=== PATIENT | female | born 1985 | race Caucasian/White ===

== ENCOUNTER 2016-10-02 21:40 | Emergency (ER) | payer SELFPAY ==
[2016-10-02] MEDS ORDERED: IBUPROFEN 600 MG TABLET PO ONE (23:30)
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
== END 2016-10-03 01:16 | disposition home or self-care (01) ==
LOC: ER 21:40
DX: S20.219A Contusion of unspecified front wall of thorax, initial encounter (principal); V49.88XA Car occupant (driver) (passenger) injured in other specified transport accidents, initial encounter; Y92.410 Unspecified street and highway as the place of occurrence of the external cause
CPT/HCPCS: 71020; 71260; 99283; 99284

== ENCOUNTER 2018-01-24 22:48 | Emergency (ER) | payer MEDICAID ==
[2018-01-24 23:27] LABS: URINE APPEARANCE CLEAR; URINE BILIRUBIN NEGATIVE (NEGATIVE); URINE BLOOD TRACE-I (NEGATIVE); URINE COLOR YELLOW; URINE GLUCOSE (UA) NEGATIVE (NEGATIVE); URINE KETONE NEGATIVE (NEGATIVE); URINE LEUKOCYTE ESTERASE SMALL (NEGATIVE); URINE NITRITE NEGATIVE (NEGATIVE); URINE PROTEIN NEGATIVE (NEGATIVE); URINE UROBILINOGEN 0.2 E.U./dL (0.20 - 1.00)
--- NOTE | 2018-01-24 23:30 | Emergency Department Record ---
History of Present Illness - General Chief complaint: Female Urogenital Problem Stated complaint: UTI ? Time Seen by Provider: 01/24/18 23:17 Source: Patient Mode of Arrival: Ambulatory Limitations: No limitations - History of Present Illness Initial comments: pt has had pain similar to what she has had in the past with kidney stones and now she has dysuria and urgency and feels as though she may have an infection Complaint: Other Onset/Timin -: Days(s) Severity scale (1-10): 5 Quality: Burning, Cramping Consistency: Intermittent Improves with: None Worsens with: Urination LMP Date: 12/26/17 Gestational Age (wks) based on LMP: 4 Associated Symptoms: Abdominal pain - Related Data Previous Rx's Medication Instructions Recorded Nitrofurantoin Monohyd/M-Cryst 100 mg PO BID #9 capsule 01/25/18 [Macrobid 100 mg Capsule] Phenazopyridine HCl [Pyridium] 200 mg PO TID #5 tab 01/25/18 Allergies Allergy/AdvReac Type Severity Reaction Status Date / Time Sulfa (Sulfonamide Allergy Unknown HYPERSENSIT Verified 01/24/18 22:56 Antibiotics) IVITY Latex, Natural Rubber Allergy SKIN Verified 01/24/18 22:56 IRRITATION Travel Screening - Travel/Exposure Within Last 30 Days Have you traveled within the last 30 days?: No - Travel Symptoms Symptom Screening: None Review of Systems Reviewed: No additional complaints except as noted below Constitutional: Reports: As per HPI. Denies: Chills, Fever, Malaise, Night sweats, Weakness, Weight change Eyes: Reports: As per HPI. Denies: Eye discharge, Eye pain, Photophobia, Vision change ENT: Reports: As per HPI. Denies: Congestion, Dental pain, Ear pain, Epistaxis , Hearing loss, Throat pain Respiratory: Reports: As per HPI. Denies: Cough, Dyspnea, Hemoptysis, Stridor, Wheezes Cardiovascular: Reports: As per HPI. Denies: Arrhythmia, Chest pain, Dyspnea on exertion, Edema, Murmurs, Orthopnea, Palpitations, Paroxysmal nocturnal dyspnea, Rheumatic Fever, Syncope Endocrine: Reports: As per HPI. Denies: Fatigue, Heat or cold intolerance, Polydipsia, Polyuria Gastrointestinal: Reports: As per HPI, Abdominal pain. Denies: Constipation, Diarrhea, Hematemesis, Hematochezia, Melena, Nausea, Vomiting Genitourinary: Reports: As per HPI, Dysuria, Frequency, Urgency. Denies: Abnormal menses, Discharge, Dyspareunia, Hematuria, Incontinence, Retention Musculoskeletal: Reports: As per HPI. Denies: Arthralgia, Back pain, Gout, Joint swelling, Myalgia, Neck pain Skin: Reports: As per HPI. Denies: Bruising, Change in color, Change in hair/ nails, Lesions, Pruritus, Rash Neurological: Reports: As per HPI. Denies: Abnormal gait, Confusion, Headache, Numbness, Paresthesias, Seizure, Tingling, Tremors, Vertigo, Weakness Psychiatric: Reports: As per HPI. Denies: Anxiety, Auditory hallucinations, Depression, Homicidal thoughts, Suicidal thoughts, Visual hallucinations Hematological/Lymphatic: Reports: As per HPI. Denies: Anemia, Blood Clots, Easy bleeding, Easy bruising, Swollen glands Past Medical History - SOCIAL HISTORY Smoking Status: Light tobacco smoker (<10/day) - RESPIRATORY Hx Respiratory Disorders: No - CARDIOVASCULAR Hx Cardio Disorders: Yes Hx Irregular Heartbeat: Yes - NEURO Hx Neuro Disorders: No - GI Hx GI Disorders: Yes Hx Abdominal Pain: Yes Hx Reflux: Yes - Hx Genitourinary Disorders: Yes Hx Kidney Stones: Yes - ENDOCRINE Hx Endocrine Disorders: No Hx Diabetes: No Hx Thyroid Disease: No - MUSCULOSKELETAL Hx Musculoskeletal Disorders: No - PSYCH Hx Psych Problems: Yes Hx Anxiety: Yes Comment:: OCD, ALISON, Bipolar 1 - HEMATOLOGY/ONCOLOGY Hx Hematology/Oncology Disorders: Yes Hx Anemia: Yes Family Medical History Any Significant Family History?: Yes Hx Kidney Disease: Father, Grandparents Physical Exam - General General Appearance: Alert, Oriented x3, Cooperative, Mild distress - Head Head exam: Normal inspection - Eye Eye exam: Normal appearance, PERRL, EOMI Pupils: Normal accommodation - ENT ENT exam: Normal exam, Mucous membranes moist, Normal external ear exam, Normal orophraynx Ear exam: Normal external inspection. negative: External canal tenderness Nasal Exam: Normal inspection. negative: Discharge, Sinus tenderness Mouth exam: Normal external inspection, Tongue normal Teeth exam: Normal inspection. negative: Dental caries Throat exam: Normal inspection. negative: Tonsillar erythema, Tonsillar exudate - Neck Neck exam: Normal inspection, Full ROM. negative: Tenderness - Respiratory Respiratory exam: Normal lung sounds bilaterally. negative: Respiratory distress - Cardiovascular Cardiovascular Exam: Regular rate, Normal rhythm, Normal heart sounds - GI/Abdominal GI/Abdominal exam: Soft, Normal bowel sounds, Tenderness (suprapubic) - Rectal Rectal exam: Deferred - exam: Deferred - Extremities Extremities exam: Normal inspection, Full ROM, Normal capillary refill. negative: Tenderness - Back Back exam: Reports: CVA tenderness (R), CVA tenderness (L), Full ROM. Denies: Muscle spasm, Rash noted, Tenderness - Neurological Neurological exam: Alert, CN II-XII intact, Normal gait, Oriented X3 - Psychiatric Psychiatric exam: Normal affect, Normal mood - Skin Skin exam: Dry, Intact, Normal color, Warm Course Vital Signs 01/24/18 22:54 Temperature 97.8 F Pulse Rate [ 77 Pulse Ox Probe] Respiratory 20 Rate Blood Pressure 125/86 [Left Arm] Pulse Ox 98 - Reevaluation(s) Reevaluation #1: 01/25/18 01:26 ct is neg Medical Decision Making - Lab Data Result diagrams: 01/24/18 23:55 01/24/18 23:55 Disposition Disposition: Discharge Clinical Impression: UTI (urinary tract infection) Qualifiers: Urinary tract infection type: acute cystitis Hematuria presence: without hematuria Qualified Code(s): N30.00 - Acute cystitis without hematuria Disposition: Home, Self-Care Condition: (1) Good Instructions: Urinary Tract Infection in Women (ED) Additional Instructions: follow up with family doctor. return sooner if worse Prescriptions: Nitrofurantoin Monohyd/M-Cryst [Macrobid 100 mg Capsule] 100 mg PO BID #9 capsule Phenazopyridine HCl [Pyridium] 200 mg PO TID #5 tab Forms: Patient Portal Access Quality - Quality Measures Quality Measures: N/A - Blood Pressure Screening Does Patient Have Any of the Following: No Blood Pressure Classification: Pre-Hypertensive BP Reading Systolic Measurement: 120 Diastolic Measurement: 71 Screening for High Blood Pressure: < Pre-Hypertensive BP, F/U Documented > [ G8950] Pre-Hypertensive Follow-up Interventions: Follow-up with rescreen every year.
[2018-01-24 23:33] LABS: HCG,QUALITATIVE URINE NEGATIVE (NEGATIVE); URINE AMORPHOUS SEDIMENT 1+; URINE BACTERIA FEW; URINE EPITHELIAL CELLS 0 - 2 (FEW); URINE RBC 0 - 2 (NONE SEEN)
[2018-01-25 00:11] LABS: BASO % 0.7 % (0-6); EOS % 2.6 % (0-6); GRAN % 48.9 % (47-80); HEMATOCRIT 36.8 % (35.0-47.0); HEMOGLOBIN 12.2 gm/dl (11.6-16.0); LYMPH % 36.5 % (16-45); MEAN CELL VOLUME 93.6 fl (81-97); MEAN CORPUSCULAR HGB CONC 33.2 g/dl (32-36); MEAN PLATELET VOLUME 9.9 fl (7.4-10.4); MONO % 11.3 % (0-9); PLATELET COUNT 307 K/uL (130-400); RED BLOOD COUNT 3.93 M/uL (3.80-5.40); RED CELL DISTRIBUTION WIDTH 12.5 % (11.5-14.5); WHITE BLOOD COUNT W/O DIFF 8.5 K/uL (4.2-12.2)
[2018-01-25 00:47] LABS: BLOOD UREA NITROGEN 14 mg/dL (6-20); CREATININE 0.9 mg/dL (0.5-0.9); EST GLOMERULAR FILTRATION RATE > 60 mL/min
[2018-01-25 00:49] LABS: GLUCOSE,RANDOM 84 mg/dL (74-109)
[2018-01-25] MEDS ORDERED: NITROFURANTOIN MONO 100 MG CAPSULE PO ONE (01:23)
[2018-01-25] MEDS ORDERED: PHENAZOPYRIDINE HCL 95 MG TABLET PO ONE (01:24)
--- NOTE | 2018-01-26 18:56 | CT SCAN REPORT ---
EXAM: CT SCAN ABDOMEN/PELVIS WO CONTRAST HISTORY: LOWER ABDOMINAL PAIN WITH WORSENING DURING URINATION. TECHNIQUE: Routine helical CT examination of the abdomen and pelvis is performed without oral or intravenous contrast administration. Lack of oral and IV contrast utilization limits evaluation of the bowel and solid viscera, respectively. COMPARISON: None. FINDINGS: Minor linear scarring vs. atelectasis is present in each lung base anteriorly. The lung bases are otherwise clear. No pleural or pericardial effusion. The heart is not enlarged. The liver, spleen, pancreas, and adrenal glands are normal in appearance. The gallbladder is surgically absent and no biliary ductal dilatation is seen. The kidneys are normal in size, position, and are smoothly marginated. There are several small nonobstructing calculi in each kidney with the largest measuring up to 3 mm. No renal mass. The renal collecting systems are normal in caliber. No definite ureteral calculus. Multiple small calcifications within the inferior pelvis are likely vascular in origin. No pelvic mass, lymphadenopathy, or free pelvic fluid. No intrinsic urinary bladder abnormality. No gross bowel dilatation nor bowel wall thickening. The appendix is visualized and normal in appearance. There is a small umbilical/periumbilical hernia appearing uncomplicated. The abdominal wall is otherwise unremarkable. No lytic or blastic bone lesion. IMPRESSION: 1. BILATERAL NEPHROLITHIASIS. NO EVIDENCE OF URETERAL CALCULUS OR OBSTRUCTIVE UROPATHY. 2. NO CONVINCING CT EVIDENCE OF AN ACUTE INTRAABDOMINAL NOR INTRAPELVIC PROCESS. JOB NUMBER: [id number] [facility]
== END 2018-01-25 01:40 | disposition home or self-care (01) ==
LOC: ER 22:48
DX: N30.00 Acute cystitis without hematuria (principal); R10.30 Lower abdominal pain, unspecified; F17.210 Nicotine dependence, cigarettes, uncomplicated; Z87.442 Personal history of urinary calculi
CPT/HCPCS: 74176; 80048; 81001; 81025; 85025; 99283; 99284

== ENCOUNTER 2018-02-05 20:46 | Emergency (ER) | payer MEDICAID ==
--- NOTE | 2018-02-05 21:03 | Emergency Department Record ---
History of Present Illness - General Chief Complaint: Abdominal Pain Stated Complaint: ABD PAIN Time Seen by Provider: 02/05/18 20:55 Source: Patient Mode of Arrival: Ambulatory Limitations: No limitations - History of Present Illness Initial Comments: The patient is here due to upper AP for 2 days. The pain is in the epigastric area and is sharp and stabbing. She denies any nausea, vomiting, diarrhea, fever , dysuria, or any vaginal symptoms. The pain is mainly located over the Xiphoid process. The patient has had her GB removed in the past and was just in the ER here due to flank pain and had a neg abdominal CT for any acute process. MD Complaint: Abdominal pain Onset/Timin -: Days(s) Location: Epigastric Radiation: Epigastric Migration to: No migration Severity: Moderate Severity scale (1-10): 5 Quality: Stabbing Improves With: Nothing Worsens With: Other Associated Symptoms: Other - Related Data LMP Date: 01/26/18 LMP (females 10-50): Last week Patient : No Previous Rx's Medication Instructions Recorded Phenazopyridine HCl [Pyridium] 200 mg PO TID #5 tab 01/25/18 Naproxen [Naprosyn] 500 mg PO BID #14 tablet. 02/05/18 Allergies Allergy/AdvReac Type Severity Reaction Status Date / Time Sulfa (Sulfonamide Allergy Unknown HYPERSENSIT Verified 01/24/18 22:56 Antibiotics) IVITY Latex, Natural Rubber Allergy SKIN Verified 01/24/18 22:56 IRRITATION Travel Screening - Travel/Exposure Within Last 30 Days Have you traveled within the last 30 days?: No - Travel Symptoms Symptom Screening: None Review of Systems Constitutional: Denies: Chills, Fever Eyes: Denies: Eye discharge ENT: Denies: Congestion Respiratory: Denies: Cough, Dyspnea Past Medical History - SOCIAL HISTORY Smoking Status: Light tobacco smoker (<10/day) Alcohol Use: None Drug Use: Rare Drug Use Detail:: Marijuana - RESPIRATORY Hx Respiratory Disorders: No - CARDIOVASCULAR Hx Cardio Disorders: Yes Hx Irregular Heartbeat: Yes - NEURO Hx Neuro Disorders: No - GI Hx GI Disorders: Yes Hx Abdominal Pain: Yes Hx Reflux: Yes - Hx Genitourinary Disorders: Yes Hx Kidney Stones: Yes - ENDOCRINE Hx Endocrine Disorders: No Hx Diabetes: No Hx Thyroid Disease: No - MUSCULOSKELETAL Hx Musculoskeletal Disorders: No - PSYCH Hx Psych Problems: Yes Hx Anxiety: Yes Comment:: OCD, ALISON, Bipolar 1 - HEMATOLOGY/ONCOLOGY Hx Hematology/Oncology Disorders: Yes Hx Anemia: Yes Family Medical History Any Significant Family History?: Yes Hx Kidney Disease: Father, Grandparents *Kidney Comment: kidney stones Physical Exam - General General Appearance: Alert, Oriented x3, Cooperative, No acute distress - Head Head exam: Atraumatic, Normocephalic, Normal inspection - Eye Eye exam: Normal appearance, PERRL, EOMI - Neck Neck exam: Normal inspection, Full ROM. negative: Tenderness - Respiratory Respiratory exam: Normal lung sounds bilaterally. negative: Respiratory distress - Cardiovascular Cardiovascular Exam: Regular rate, Normal rhythm, Normal heart sounds - GI/Abdominal GI/Abdominal exam: Soft, Other (There is tenderness over the xiphoid process which does reproduce the patient's pain. There is no swelling, bruising, or erythema appreciated and the Xiphoid process feels very normal on palpation.). negative: Distended, Rebound, Rigid, Tenderness Course Vital Signs 02/05/18 20:52 Temperature 98.3 F Pulse Rate [ 80 Pulse Ox Probe] Respiratory 18 Rate Blood Pressure 127/89 [Left Arm] Pulse Ox 97 - Reevaluation(s) Reevaluation #1: The patient is doing well at this time. She is very comfortable and is presently texting on her phone. I did explain to her that her workup has been very normal at this time. She clearly is focused on her Xiphoid process which I do believe is normal. Since she did just have an abdominal CT about 10 days ago I do not see any reason to order another. She is to take the NSAID as directed and see her family doctor for recheck later this week. 02/05/18 21:48 Medical Decision Making - Lab Data Result diagrams: 02/05/18 21:12 02/05/18 21:12 Disposition Disposition: Discharge Clinical Impression: Abdominal pain Qualifiers: Abdominal location: epigastric Qualified Code(s): R10.13 - Epigastric pain Disposition: Home, Self-Care Condition: (2) Stable Instructions: Abdominal Pain (ED) Additional Instructions: Please take the Naprosyn for pain and use an OTC laxative as needed. Please see your family doctor for recheck later this week if not better and return to the ER for any worsening pain, fever, or vomiting. Prescriptions: Naproxen [Naprosyn] 500 mg PO BID #14 tablet.dr Forms: Patient Portal Access Time of Disposition: 21:48 Quality - Quality Measures Quality Measures: N/A - Blood Pressure Screening View Details: Yes Does Patient Have Any of the Following: No Blood Pressure Classification: Pre-Hypertensive BP Reading Systolic Measurement: 122 Diastolic Measurement: 89 Screening for High Blood Pressure: < Pre-Hypertensive BP, F/U Documented > [ G8950] Pre-Hypertensive Follow-up Interventions: Referral to alternative/primary care provider.
[2018-02-05 21:21] LABS: URINE APPEARANCE CLEAR; URINE BILIRUBIN NEGATIVE (NEGATIVE); URINE BLOOD NEGATIVE (NEGATIVE); URINE COLOR YELLOW; URINE GLUCOSE (UA) NEGATIVE (NEGATIVE); URINE KETONE NEGATIVE (NEGATIVE); URINE LEUKOCYTE ESTERASE NEGATIVE (NEGATIVE); URINE NITRITE NEGATIVE (NEGATIVE); URINE PROTEIN NEGATIVE (NEGATIVE); URINE UROBILINOGEN 0.2 E.U./dL (0.20 - 1.00)
[2018-02-05 21:23] LABS: BASO % 0.6 % (0-6); EOS % 1.6 % (0-6); HCG,QUALITATIVE URINE NEGATIVE (NEGATIVE); HEMATOCRIT 37.6 % (35.0-47.0); HEMOGLOBIN 12.3 gm/dl (11.6-16.0); LYMPH % 40.6 % (16-45); MEAN CELL VOLUME 93.1 fl (81-97); MEAN CORPUSCULAR HEMOGLOBIN 30.4 pg (27-33); MEAN CORPUSCULAR HGB CONC 32.7 g/dl (32-36); MEAN PLATELET VOLUME 9.3 fl (7.4-10.4); MONO % 12.2 % (0-9); PLATELET COUNT 332 K/uL (130-400); RED BLOOD COUNT 4.04 M/uL (3.80-5.40); RED CELL DISTRIBUTION WIDTH 12.4 % (11.5-14.5); WHITE BLOOD COUNT W/O DIFF 7.9 K/uL (4.2-12.2)
[2018-02-05] MEDS: KETOROLAC 30 MG/ML VIAL IM ONE (21:31)
[2018-02-05 21:32] LABS: BLOOD UREA NITROGEN 14 mg/dL (6-20); CREATININE 0.8 mg/dL (0.5-0.9); EST GLOMERULAR FILTRATION RATE > 60 mL/min; TOTAL PROTEIN 6.6 g/dL (6.6-8.7)
[2018-02-05 21:34] LABS: GLUCOSE,RANDOM 95 mg/dL (74-109)
[2018-02-05 21:37] LABS: ALBUMIN 4.4 g/dL (4.0-5.0); ALKALINE PHOSPHATASE 63 U/L (35-104); ALT/SGPT 18 U/L (<33); AST/SGOT 20 U/L (10.0-35.0); LIPASE 26 U/L (13-60)
== END 2018-02-05 21:53 | disposition home or self-care (01) ==
LOC: ER 20:46
DX: R10.13 Epigastric pain (principal); F17.210 Nicotine dependence, cigarettes, uncomplicated
CPT/HCPCS: 99283 ×2; 96372; 83690; 85025; 80053; 81003; 81025; J1885